=== PATIENT | male | born 1960 | race Caucasian/White ===

== ENCOUNTER → 2017-06-09 | Outpatient (CLI) | payer BC ==
[2017-06-09 11:36] LABS: CREATININE 0.9 mg/dL (0.6-1.3)
== END | disposition disaster alternative care site (69) ==
LOC: GRAD 10:30
PROVIDERS: Registered Nurse Medical-Surgical
DX: C61 Malignant neoplasm of prostate (principal); R22.2 Localized swelling, mass and lump, trunk
CPT/HCPCS: A9503; Q9967